=== PATIENT | female | born 1945 | race Caucasian/White ===

== ENCOUNTER 2023-09-21 07:45 | Day surgery (SDC) | payer MEDICARE, BC ==
[2023-09-21] MEDS: Polymyxin B/Trimethoprim 10 ML Bottle EYELF SCH (08:10)
[2023-09-21] MEDS: Brimonidine 0.2% Ophth Soln 5 ML Bottle EYELF SCH (08:15)
[2023-09-21] MEDS: Phenylephrine 2.5% Ophth Soln 2 ML Bot EYELF SCH (08:20)
[2023-09-21] MEDS: Tropicamide 1% Ophth Soln 3 ML Bottle EYELF SCH (08:25)
[2023-09-21] MEDS: Proparacaine 0.5% Ophth Soln 15 ML Bottle EYEBOTH SCH (09:07)
[2023-09-21] MEDS: Lidocaine 1% PF 2 ML SDV INJECT SCH (09:38)
[2023-09-21] MEDS: Cefuroxime 10 MG/ML SYRINGE EYELF SCH (09:54)
[2023-09-21] MEDS: Pilocarpine 4% Ophth Soln 15 ML Bot EYELF SCH (09:56)
== END 2023-09-21 10:05 | disposition home or self-care (01) ==
LOC: JD.SDS 07:45
PROVIDERS: ATTEND Ophthalmology
DX: E11.36 Type 2 diabetes mellitus with diabetic cataract (principal); H25.813 Combined forms of age-related cataract, bilateral; H16.103 Unspecified superficial keratitis, bilateral; H16.223 Keratoconjunctivitis sicca, not specified as Sjogren's, bilateral; H02.831 Dermatochalasis of right upper eyelid; H02.834 Dermatochalasis of left upper eyelid; H35.3131 Nonexudative age-related macular degeneration, bilateral, early dry stage; H35.363 Drusen (degenerative) of macula, bilateral; I10 Essential (primary) hypertension; E78.00 Pure hypercholesterolemia, unspecified; Z79.899 Other long term (current) drug therapy; Z88.0 Allergy status to penicillin; Z88.8 Allergy status to other drugs, medicaments and biological substances
CPT/HCPCS: A9270-GY; J0697; J3490; V2632